=== PATIENT | male | born 1985 | race African-American/Black ===

== ENCOUNTER 2017-07-11 20:06 | Emergency (ER) | payer SELFPAY ==
[2017-07-11 20:46] LABS: Absolute Lymphocytes (CBC) 3.4 K/uL (0.7-4.9); Absolute Monocytes 0.5 K/uL (0.1-1.3); Absolute Neutrophil 2.2 K/uL (1.8-8.0); Basophils % 0.9 % (0-1.3); Eosinophils % 1.4 % (0-4.4); Lymphocytes % 54.9 % (15.3-44.8); MCH 27.7 pg (27.0-35.0); MCV 83.4 fL (80-100); MPV 7.7 fL (7.6-11.3); Monocytes % 7.4 % (3.3-12.3)
--- NOTE | 2017-07-11 20:56 | RAD REPORT ---
EXAM DESCRIPTION: RAD - Chest Single View - 07/11/2017 8:41 pm CLINICAL HISTORY: Abdominal pain COMPARISON: None. TECHNIQUE: AP portable chest image was obtained 2028 hours . FINDINGS: Lungs are clear. Heart and vasculature are normal. No measurable pleural effusion and no p neumothorax. No gross bony abnormality seen. No acute aortic findings suspected. IMPRESSION: No acute cardiopulmonary process.
[2017-07-11 21:01] LABS: ALT/SGPT 18 IU/L (10-60); AST/SGOT 29 IU/L (10-42); Albumin 3.5 g/dL (3.2-5.5); Alkaline Phosphatase 93 IU/L (42-121); BUN Blood Urea Nitrogen 19 mg/dL (6-20); Bicarbonate 31 mEq/L (21-31); Bilirubin Direct 0.3 mg/dL (0-0.2); Bilirubin Total 0.8 mg/dL (0.3-1.2); Glucose Level 85 mg/dL (65-120); Lipase 27 U/L (22-51); Potassium 4.4 mEq/L (3.6-5.0); Protein, Total 7.4 g/dL (6.0-8.3); Sodium Level 135 mEq/L (135-145)
[2017-07-11 21:20] LABS: Barbiturates NEGATIVE; Benzodiazepines NEGATIVE; Cocaine NEGATIVE; Opiates NEGATIVE; Phencyclidine NEGATIVE; THC Cannibis POSITIVE
[2017-07-11 21:21] LABS: METHAMPHETAM POSITIVE (NEGATIVE)
[2017-07-11] MEDS ORDERED: KETOROLAC 30 MG/ML INJ ONE (21:36)
[2017-07-11 21:47] LABS: Urine Blood TRACE (NEG); Urine Glucose NEGATIVE (NEG); Urine Protein 1+ (NEG); Urine pH 7.5 (5.0-7.0)
--- NOTE | 2017-07-11 23:45 | EDPHYS ---
Physician Documentation [facility] Name: Ritesh Fraga Age: 31 yrs Sex: Male : 1985 Arrival Date: 07/11/2017 Time: 20:10 Bed 4 Private MD: ED Physician Nathen Brown HPI: 07/11 20:30 This 31 yrs old Black Male presents to ER via EMS with complaints of Abdominal pain. pm1 20:30 The patient presents with abdominal pain that is diffuse. Onset: The symptoms/episode pm1 began/occurred today. The symptoms do not radiate. Associated signs and symptoms: Pertinent positives: constipation, last normal bowel movement 1 week ago. Has been having small pellet BM for the past few days, Pertinent negatives: nausea, vomiting, and diarrhea, dysuria, fever. The symptoms are described as crampy. Modifying factors: The symptoms are alleviated by nothing, the symptoms are aggravated by nothing. Severity of pain: in the emergency department the pain is actually worse. The patient has not experienced similar symptoms in the past. The patient has not recently seen a physician. Patient reports constipation for the past 7 days. Last normal large BM 7 days ago. For the past days since he has had small pellets for BM. Patient with a history of street drug abuse. Historical: - Allergies: 20:14 No Known Allergies; jd3 - Home Meds: 20:14 None [Active]; jd3 - PMHx: 20:14 None; jd3 - PSHx: 20:14 None; jd3 - Immunization history:: Adult Immunizations up to date. - Social history:: Smoking status: Patient uses tobacco products, smokes one pack cigarettes per day. Patient uses street drugs. - Ebola Screening: : Patient negative for fever greater than or equal to 101.5 degrees Fahrenheit, and additional compatible Ebola Virus Disease symptoms. ROS: 20:30 Constitutional: Negative for fever, chills, and weight loss, Eyes: Negative for injury, pm1 pain, redness, and discharge, ENT: Negative for injury, pain, and discharge, Neck: Negative for injury, pain, and swelling, Respiratory: Negative for shortness of breath, cough, wheezing, and pleuritic chest pain. 20:30 Back: Negative for injury and pain, MS/Extremity: Negative for injury and deformity, Skin: Negative for injury, rash, and discoloration, Neuro: Negative for headache, weakness, numbness, tingling, and seizure. 20:30 : Negative for injury, bleeding, discharge, and swelling. 20:30 Cardiovascular: Positive for Patient reports chest pain when the abdominal pain occurs. 20:30 Abdomen/GI: Positive for abdominal pain, constipation, Negative for nausea, vomiting, and diarrhea. Exam: 20:30 Constitutional: This is a well developed, well nourished patient who is awake, alert, pm1 and in no acute distress. Head/Face: Normocephalic, atraumatic. Eyes: Pupils equal round and reactive to light, extra-ocular motions intact. Lids and lashes normal. Conjunctiva and sclera are non-icteric and not injected. Cornea within normal limits. Periorbital areas with no swelling, redness, or edema. ENT: Nares patent. No nasal discharge, no septal abnormalities noted. Tympanic membranes are normal and external auditory canals are clear. Oropharynx with no redness, swelling, or masses, exudates, or evidence of obstruction, uvula midline. Mucous membranes moist. Neck: Trachea midline, no thyromegaly or masses palpated, and no cervical lymphadenopathy. Supple, full range of motion without nuchal rigidity, or vertebral point tenderness. No Meningismus. Chest/axilla: Normal chest wall appearance and motion. Nontender with no deformity. No lesions are appreciated. Cardiovascular: Regular rate and rhythm with a normal S1 and S2. No gallops, murmurs, or rubs. Normal PMI, no JVD. No pulse deficits. Respiratory: Lungs have equal breath sounds bilaterally, clear to auscultation and percussion. No rales, rhonchi or wheezes noted. No increased work of breathing, no retractions or nasal flaring. 20:30 Back: No spinal tenderness. No costovertebral tenderness. Full range of motion. Skin: Warm, dry with normal turgor. Normal color with no rashes, no lesions, and no evidence of cellulitis. MS/ Extremity: Pulses equal, no cyanosis. Neurovascular intact. Full, normal range of motion. 20:30 Abdomen/GI: Inspection: abdomen appears normal, Bowel sounds: normal, Palpation: soft, mild abdominal tenderness, in the right upper quadrant, mass, is not appreciated, rebound tenderness, is not appreciated. 20:30 Neuro: Orientation: is normal, Motor: is normal, Sensation: is normal, no obvious gross deficits, Gait: is steady, at a normal pace, without difficulty. Vital Signs: 20:15 BP 129 / 101; Pulse 90; Resp 17 S; Temp 98.1(O); Pulse Ox 98% on R/A; Weight 70.31 kg jd3 (R); Height 5 ft. 7 in. (170.18 cm) (R); Pain 10/10; 21:14 BP 121 / 99; Pulse 88; Resp 16 S; Pulse Ox 98% on R/A; jd3 22:14 BP 134 / 88; Pulse 94; Resp 18 S; Pulse Ox 97% on R/A; Pain 8/10; jd3 23:10 BP 170 / 110; Pulse 79; Resp 16 S; Pulse Ox 100% on R/A; Pain 10/10; jd3 06 00:33 Pulse 85; Resp 17 S; Pulse Ox 100% on R/A; jd3 00:57 BP 134 / 98; Pulse 88; Resp 16 S; Pulse Ox 100% on R/A; jd3 07/11 20:15 Body Mass Index 24.28 (70.31 kg, 170.18 cm) j MDM: 07/11 20:13 Patient medically screened. pm1 23:42 Data reviewed: vital signs. Data interpreted: Pulse oximetry: on room air is 100 %. pm1 Interpretation: normal. 23:42 ED course: impression from Vrad: 1. no acute intra-abdominal or pelvic process. 2. pm1 Constipation. 23:42 Counseling: I had a detailed discussion with the patient and/or guardian regarding: the pm1 historical points, exam findings, and any diagnostic results supporting the discharge/admit diagnosis, lab results, radiology results, to return to the emergency department if symptoms worsen or persist or if there are any questions or concerns that arise at home. 07/11 20:12 Order name: Basic Metabolic Panel; Complete Time: 21:47 pm1 07/11 20:12 Order name: CBC with Diff; Complete Time: 21:47 pm1 07/11 20:12 Order name: Hepatic Function; Complete Time: 21:47 pm1 07/11 20:12 Order name: Lipase; Complete Time: 21:47 pm1 07/11 20:12 Order name: Troponin (emerg Dept Use Only); Complete Time: 21:47 pm1 07/11 20:13 Order name: UDS pm1 07/11 20:12 Order name: IV Saline Lock; Complete Time: 20:22 pm1 07/11 20:12 Order name: EKG; Complete Time: 20:13 pm1 07/11 20:12 Order name: Chest Single View XRAY; Complete Time: 21:47 pm1 07/11 20:13 Order name: CT Abd/Pelvis - W/Contrast pm1 07/11 20:13 Order name: Urine Drug Screen; Complete Time: 21:47 EDMS 07/11 21:06 Order name: Urine Dipstick--Ancillary (enter results); Complete Time: 21:47 rg2 07/11 20:12 Order name: Labs collected and sent; Complete Time: 20:48 pm1 07/11 20:12 Order name: Urine Dipstick-Ancillary (obtain specimen); Complete Time: 21:16 pm1 07/11 20:12 Order name: EKG - Nurse/Tech; Complete Time: 20:32 pm1 Administered Medications: 21:39 Drug: TORadol 30 mg Route: IVP; Site: left antecubital; jd3 22:17 Follow up: Response: No adverse reaction jd3 23:57 Drug: NS 0.9% 1000 ml Route: IV; Rate: 1000 ml; Site: left antecubital; jd3 07/12 00:59 Follow up: Response: No adverse reaction; IV Status: Completed infusion; IV Intake: jd3 1000ml Disposition: 06:06 Co-signature as Attending Physician, Nathen Brown MD I agree with the assessment and 4 plan of care. Disposition: 07/11/17 23:44 Discharged to Home. Impression: Constipation, Other stimulant abuse. - Condition is Stable. - Discharge Instructions: Stimulant Use Disorder-Amphetamines, Constipation, Adult. - Prescriptions for Miralax 17 gram/dose Oral - take 1 packet by ORAL route once daily for 7 days dilute powder in 8 ounces of water or juice; 7 packet. - Medication Reconciliation Form, Thank You Letter form. - Follow up: Emergency Department; When: As needed; Reason: Worsening of condition. Follow up: Private Physician; When: 2 - 3 days; Reason: Recheck today's complaints, Continuance of care, Re-evaluation by your physician. - Problem is new. - Symptoms have improved. Signatures: Dispatcher [employer] EDMS Farrukh Guillen, TRISTAN RECORDINGS LIBRARIAN pm1 Yaya Eddy, NITESH RN jd3 Nathen Brown MD MD tw4 Corrections: (The following items were deleted from the chart) 07/11 23:48 23:44 07/11/2017 23:44 Discharged to Home. Impression: Constipation. Condition is pm1 Stable. Forms are Medication Reconciliation Form, Thank You Letter, Antibiotic Education, Prescription Opioid Use. Follow up: Emergency Department; When: As needed; Reason: Worsening of condition. Follow up: Private Physician; When: 2 - 3 days; Reason: Recheck today's complaints, Continuance of care, Re-evaluation by your physician. Problem is new. Symptoms have improved. pm1 07/12 01:00 07/11 23:48 07/11/2017 23:44 Discharged to Home. Impression: Constipation; Other jd3 stimulant abuse. Condition is Stable. Discharge Instructions: Constipation, Adult. Prescriptions for Miralax 17 gram/dose Oral - take 1 packet by ORAL route once daily for 7 days dilute powder in 8 ounces of water or juice; 7 packet. and Forms are Medication Reconciliation Form, Thank You Letter, Antibiotic Education. Follow up: Emergency Department; When: As needed; Reason: Worsening of condition. Follow up: Private Physician; When: 2 - 3 days; Reason: Recheck today's complaints, Continuance of care, Re-evaluation by your physician. Problem is new. Symptoms have improved. pm1
--- NOTE | 2017-07-11 23:45 | ER ---
Nurse's Notes [facility] Name: Ritesh Fraga Age: 31 yrs Sex: Male : 1985 Arrival Date: 07/11/2017 Time: 20:10 Bed 4 Private MD: Diagnosis: Constipation;Other stimulant abuse Presentation: 07/11 20:10 Presenting complaint: EMS states: "pt is having sever abdominal pain in bother upper jd3 quadrants." pt reports it hurts all over his abdomen, but mainly the upper quadrants. Transition of care: patient was not received from another setting of care. Onset of symptoms was July 11, 2017. Risk Assessment: Do you want to hurt yourself or someone else? Patient reports no desire to harm self or others. Initial Sepsis Screen: Does the patient meet any 2 criteria? No. Patient's initial sepsis screen is negative. Does the patient have a suspected source of infection? No. Patient's initial sepsis screen is negative. Care prior to arrival: Medication(s) given: ASA, 325 mg, x 1, IV initiated. 20 GA, in the left antecubital area. 20:10 Method Of Arrival: EMS: [facility] jd3 20:10 Acuity: TOMMY 3 jd3 Historical: - Allergies: 20:14 No Known Allergies; jd3 - Home Meds: 20:14 None [Active]; jd3 - PMHx: 20:14 None; jd3 - PSHx: 20:14 None; jd3 - Immunization history:: Adult Immunizations up to date. - Social history:: Smoking status: Patient uses tobacco products, smokes one pack cigarettes per day. Patient uses street drugs. - Ebola Screening: : Patient negative for fever greater than or equal to 101.5 degrees Fahrenheit, and additional compatible Ebola Virus Disease symptoms. Screenin:14 Abuse screen: Denies threats or abuse. Nutritional screening: No deficits noted. jd3 Tuberculosis screening: No symptoms or risk factors identified. Fall Risk IV access (20 points). Gait- Normal/Bed Rest/Wheelchair (0 pts) Mental Status- Oriented to own ability (0 pts). Total Helms Fall Scale indicates No Risk (0-24 pts). Assessment: 20:16 General: Appears uncomfortable, Behavior is cooperative, appropriate for age, anxious. jd3 Pain: Complains of pain in abdomen Pain currently is 10 out of 10 on a pain scale. Quality of pain is described as Pain began 2-3 days ago. Is continuous, Also complains of nausea. 20:17 Neuro: Level of Consciousness is awake, alert, obeys commands, Oriented to person, jd3 place, time, situation. Cardiovascular: Heart tones S1 S2 present Capillary refill < 3 seconds. Respiratory: Airway is patent Respiratory effort is even, unlabored, Respiratory pattern is regular, symmetrical, Breath sounds are clear bilaterally. GI: Abdomen is flat, Bowel sounds present X 4 quads. Abd is soft Abdomen is tender to palpation X 4 quads. Reports lower abdominal pain, upper abdominal pain, constipation, cramping. : No signs and/or symptoms were reported regarding the genitourinary system. EENT: No signs and/or symptoms were reported regarding the EENT system. Derm: Skin is intact, Skin is dry, Skin is normal, Skin temperature is warm. Musculoskeletal: Circulation, motion, and sensation intact. Range of motion: intact in all extremities. 21:15 Reassessment: Patient appears in no apparent distress at this time. Patient and/or jd3 family updated on plan of care and expected duration. Pain level reassessed. Patient is alert, oriented x 3, equal unlabored respirations, skin warm/dry/pink. 23:10 Reassessment: waiting for IV fluids to infuse before discharge. provider made aware of jd3 elevated blood pressure, no new orders noted at this time. 23:19 Reassessment: Patient appears in no apparent distress at this time. Patient and/or jd3 family updated on plan of care and expected duration. Pain level reassessed. Patient is alert, oriented x 3, equal unlabored respirations, skin warm/dry/pink. 07/12 00:35 Reassessment: Patient appears in no apparent distress at this time. Patient and/or jd3 family updated on plan of care and expected duration. Pain level reassessed. Patient is alert, oriented x 3, equal unlabored respirations, skin warm/dry/pink. waiting discharge for IV fluids to infuse. no distress noted at this time, call camacho in reach, family at bedside. 01:00 Reassessment: Patient appears in no apparent distress at this time. Patient and/or jd3 family updated on plan of care and expected duration. Pain level reassessed. Patient is alert, oriented x 3, equal unlabored respirations, skin warm/dry/pink. pt reported understanding of discharge instructions, even and steady gait upon discharge. Patient states feeling better. Vital Signs: 07/11 20:15 BP 129 / 101; Pulse 90; Resp 17 S; Temp 98.1(O); Pulse Ox 98% on R/A; Weight 70.31 kg jd3 (R); Height 5 ft. 7 in. (170.18 cm) (R); Pain 10/10; 21:14 BP 121 / 99; Pulse 88; Resp 16 S; Pulse Ox 98% on R/A; jd3 22:14 BP 134 / 88; Pulse 94; Resp 18 S; Pulse Ox 97% on R/A; Pain 8/10; jd3 23:10 BP 170 / 110; Pulse 79; Resp 16 S; Pulse Ox 100% on R/A; Pain 10/10; jd3 07/12 00:33 Pulse 85; Resp 17 S; Pulse Ox 100% on R/A; jd3 00:57 BP 134 / 98; Pulse 88; Resp 16 S; Pulse Ox 100% on R/A; jd3 07/11 20:15 Body Mass Index 24.28 (70.31 kg, 170.18 cm) j ED Course: 07/11 20:10 Patient arrived in ED. jd3 20:11 Farrukh Guillen NP is PHCP. pm1 20:11 Nathen Brown MD is Attending Physician. pm1 20:13 Triage completed. jd3 20:16 Arm band placed on. jd3 20:17 Yaya Eddy RN is Primary Nurse. jd3 20:39 X-ray completed. Portable x-ray completed in exam room. Patient tolerated procedure ml well. 20:39 Chest Single View XRAY In Process Unspecified. EDMS 21:15 Patient has correct armband on for positive identification. Bed in low position. Call [facility] light in reach. Side rails up X2. Adult w/ patient. 22:[address] via wheelchair. 22:45 CT completed. PATIENT STATED HE WAS ITCHY AFTER GETTING THE CONTRAST INJECTION. Patient eh moved back from CT. 22:46 CT Abd/Pelvis - W/Contrast In Process Unspecified. EDMS 22:46 Notified. Notified. 07/12 00:58 No provider procedures requiring assistance completed. IV discontinued, intact, jd3 bleeding controlled, No redness/swelling at site. Pressure dressing applied. Administered Medications: 07/11 21:39 Drug: TORadol 30 mg Route: IVP; Site: left antecubital; jd3 22:17 Follow up: Response: No adverse reaction jd3 23:57 Drug: NS 0.9% 1000 ml Route: IV; Rate: 1000 ml; Site: left antecubital; jd3 07/12 00:59 Follow up: Response: No adverse reaction; IV Status: Completed infusion; IV Intake: jd3 1000ml Intake: 00:59 IV: 1000ml; Total: 1000ml. jd3 Outcome: 07/11 23:44 Discharge ordered by . pm1 07/12 00:58 Discharged to home ambulatory, with family. jd3 Condition: stable Discharge instructions given to patient, family, Instructed on discharge instructions, follow up and referral plans. medication usage, Demonstrated understanding of instructions, follow-up care, medications, Prescriptions given X 1. 01:00 Patient left the ED. jd3 Signatures: Dispatcher [employer] Domo Stevens Melissa ml Marinas, Patrick, TRISTAN JACQUARD LACE WEAVER pm1 Yaya Eddy RN RN jd3 Corrections: (The following items were deleted from the chart) 07/11 20:19 20:16 Pain: Complains of pain in abdomen Pain currently is 10 out of 10 on a pain jd3 scale. Quality of pain is described as jd3 07/12 00:36 07/11 23:57 Reassessment: waiting for IV fluids to infuse before discharge. provider jd3 made aware of elevated blood pressure, no new orders noted at this time. jd3
[2017-07-11] MEDS ORDERED: NA CHLORIDE 0.9% 1,000 ML ONE (23:51)
--- NOTE | 2017-07-12 06:51 | EKG ---
Test Date: 2017-07-11 Test Time: 20:28:12 Glass Enamel Mixer: SHANITA MEASUREMENT RESULTS: Intervals: Rate: 78 ME: 146 QRSD: 82 QT: 344 QTc: 392 [place]: P: 25 ME: 146 QRS: 74 T: 77 INTERPRETIVE STATEMENTS: Normal sinus rhythm Early repolarization Normal ECG No previous ECG available for comparison Electronically Signed On 07-12-17 06:50:45 CDT by Aleksandar Diallo
--- NOTE | 2017-07-12 08:23 | RAD REPORT ---
EXAM DESCRIPTION: CT - Abdomen Pelvis W Contrast - 07/12/2017 7:33 am CLINICAL HISTORY: Diffuse abdominal pain. A preliminary written report was provided at the time of the study, and the report was reviewed prio r to final dictation. COMPARISON: None. TECHNIQUE: Biphasic, helical CT imaging of the abdomen and pelvis was performed following 100 ml non -ionic IV contrast. No oral contrast administered. All CT scans are performed using dose optimization technique as appropriate and may include automated exposure control or mA/KV adjustment according to patient size. FINDINGS: No suspicious findings in the lung bases. The liver, spleen, and pancreas show no suspicious findings. Gallbladder and biliary tree are also wi thout suspicious finding. Renal function is symmetric. No hydronephrosis or suspicious renal mass. There is some minimal hetero geneity of the renal parenchymal enhancement. Urinary bladder is contracted. Likelihood of pyelonephr itis is felt to be low but can be correlated with any UA abnormality. No dilated bowel loops or bowel wall thickening. Appendicitis is not suspected. There is a large amou nt of stool present filling the colon. No free air, free fluid or inflammatory stranding. No hernia, mass or bulky lymphadenopathy. Urinary bladder is mostly contracted precluding accurate assessment. No bladder calculus suspected. No adrenal abnormality. No suspicious bony findings. IMPRESSION: No bowel obstruction, free air or surgically emergent finding. Constipation or large colon stool volume. No appendicitis suspected. Subtle heterogeneity of the renal parenchymal is doubtful as significant. Pyelonephritis would not be suspected without supporting laboratory abnormality or matching clinical history.
== END 2017-07-12 01:00 | disposition home or self-care (01) ==
LOC: ER 20:06
DX: K59.00 Constipation, unspecified (principal); F17.210 Nicotine dependence, cigarettes, uncomplicated
CPT/HCPCS: 36415; 71045; 74177; 80048; 80076; 80307; 81003; 83690; 84484; 85025; 93005; 96361; 96374; 99284; J7030; Q9967

== ENCOUNTER 2019-01-26 23:25 | Emergency (ER) | payer SELFPAY ==
[2019-01-27] MEDS ORDERED: NA CHLORIDE 0.9% 1,000 ML ONE ×2 (00:08→01:14)
[2019-01-27 00:24] LABS: Absolute Lymphocytes (CBC) 3.3 K/uL (0.7-4.9); Hematocrit 32.2 % (39.6-49.0); Lymphocytes % 27.9 % (15.3-44.8); MPV 8.6 fL (7.6-11.3)
[2019-01-27 00:28] LABS: Urine Blood NEGATIVE (NEG); Urine Glucose NEGATIVE (NEG); Urine Protein NEGATIVE (NEG)
[2019-01-27 00:30] LABS: Barbiturates NEGATIVE (NEGATIVE); Benzodiazepines NEGATIVE (NEGATIVE); Cocaine NEGATIVE (NEGATIVE); METHAMPHETAM NEGATIVE (NEGATIVE); Methadone NEGATIVE (NEGATIVE); Opiates NEGATIVE (NEGATIVE); Phencyclidine NEGATIVE (NEGATIVE); THC Cannibis NEGATIVE (NEGATIVE)
[2019-01-27 00:34] LABS: ALT/SGPT 20 U/L (12-78); AST/SGOT 13 U/L (15-37); Albumin 3.2 g/dL (3.4-5.0); Alkaline Phosphatase 76 U/L (45-117); BUN Blood Urea Nitrogen 38 mg/dL (7-18); Bicarbonate 30 mmol/L (21-32); Bilirubin Direct < 0.1 mg/dL (0-0.2); Bilirubin Total 0.2 mg/dL (0.2-1.0); Glucose Level 92 mg/dL (74-106); Lipase 56 U/L (73-393); Potassium 4.4 mmol/L (3.5-5.1); Protein, Total 6.5 g/dL (6.4-8.2); Sodium Level 138 mmol/L (136-145)
--- NOTE | 2019-01-27 01:29 | ER ---
Nurse's Notes [facility] Name: Ritesh Fraga Age: 33 yrs Sex: Male : 1985 Arrival Date: 01/26/2019 Time: 23:29 Bed 27 Private MD: Diagnosis: Diarrhea, unspecified;Dehydration Presentation: 01/26 23:34 Presenting complaint: Patient states: feeling weak, fatigued, lightheaded and SOB that started today. Also had 1 loose black bowel movement. Transition of care: patient was not received from another setting of care. Onset of symptoms was January 26, 2019. Risk Assessment: Do you want to hurt yourself or someone else? Patient reports no desire to harm self or others. Initial Sepsis Screen: Does the patient meet any 2 criteria? HR > 90 bpm. Does the patient have a suspected source of infection? No. Patient's initial sepsis screen is negative. Care prior to arrival: None. 23:34 Method Of Arrival: Ambulatory 23:34 Acuity: TOMMY 3 Historical: - Allergies: 23:39 No Known Allergies; - Home Meds: 23:39 None [Active]; - PMHx: 23:39 None; - PSHx: 23:39 None; - Immunization history:: Adult Immunizations not up to date. - Social history:: Smoking status: Patient uses tobacco products. - Ebola Screening: : Patient negative for fever greater than or equal to 101.5 degrees Fahrenheit, and additional compatible Ebola Virus Disease symptoms Patient denies exposure to infectious person. Screenin:41 Abuse screen: Denies threats or abuse. Denies injuries from another. Nutritional screening: No deficits noted. Tuberculosis screening: No symptoms or risk factors identified. Fall Risk None identified. Assessment: 01/27 00:02 General: Appears uncomfortable, Behavior is calm, cooperative, appropriate for age. tr5 General: Reports feeling ill for. Pain: Denies pain. Neuro: Reports dizziness, weakness. Cardiovascular: Heart tones present Capillary refill < 3 seconds Pulses are all present. Respiratory: Reports cough that is Airway is patent Respiratory effort is even, unlabored, Respiratory pattern is regular, symmetrical. GI: Reports bloody stool. : No signs and/or symptoms were reported regarding the genitourinary system. EENT: Reports nasal congestion nasal discharge. Derm: No signs and/or symptoms reported regarding the dermatologic system. Musculoskeletal: No signs and/or symptoms reported regarding the musculoskeletal system. 01:49 Reassessment: Patient appears in no apparent distress at this time. Patient and/or jb4 family updated on plan of care and expected duration. Pain level reassessed. Patient is alert, oriented x 3, equal unlabored respirations, skin warm/dry/pink. Pt and significant other verbalized understanding of d/c and follow up instructions. rechecked pt's b/p, b/p noted at 81/69. Pt refused second 1L bolus prior to discharge. Pt continues to refuse bolus. Pt states " I have some very important stuff for my daughter in the morning, I have to go.". Informed patient of the risk of leaving with low blood pressure and the possibility of worsening condition up to . Pt verbalized understanding of information. Refused to stay for further treatment and evaluation. Vital Signs: 01/26 23:41 BP 102 / 83; Pulse 110; Resp 18; Temp 97.8; Pulse Ox 100% ; Weight 69.85 kg; Height 5 wh ft. 8 in. (172.72 cm); 01/27 00:43 BP 85 / 67; Pulse 93; Resp 18; Pulse Ox 99% on R/A; tr5 01:49 BP 81 / 69; Pulse 95; Resp 16; Pulse Ox 98% on R/A; jb4 01/26 23:41 Body Mass Index 23.42 (69.85 kg, 172.72 cm) ED Course: 01/26 23:29 Patient arrived in ED. jg7 23:32 Farrukh Guillen NP is PHCP. pm1 23:32 Nathen Brown MD is Attending Physician. pm1 23:35 Triage completed. 23:40 Arm band placed on right wrist. 23:40 Patient has correct armband on for positive identification. Bed in low position. Call light in reach. Side rails up X 1. Pulse ox on. NIBP on. 23:41 Manjit Mccabe, RN is Primary Nurse. tr5 01/27 00:01 Strep Sent. tr5 00:01 Flu Sent. tr5 00:05 Initial lab(s) drawn, by me, sent to lab. Inserted saline lock: 20 gauge in right tr5 antecubital area, using aseptic technique. 01:49 No provider procedures requiring assistance completed. IV discontinued, intact, jb4 bleeding controlled, No redness/swelling at site. Pressure dressing applied. Administered Medications: Discontinued: NS 0.9% 1000 ml IV at 1000 ml once 00:13 Drug: NS 0.9% 1000 ml Route: IV; Rate: 1000 ml; Site: right antecubital; tr5 01:20 Follow up: Response: No adverse reaction; IV Status: Completed infusion; IV Intake: jb4 1000ml 00:45 Drug: NS 0.9% 1000 ml Route: IV; Rate: 1000 ml; Site: right antecubital; tr5 00:58 CANCELLED (Physician Discretion): Pepcid 20 mg IVP once pm1 Intake: 01:20 IV: 1000ml; Total: 1000ml. jb4 Outcome: 01:29 Discharge ordered by . pm1 01:49 Discharged to home ambulatory, with significant other. jb4 01:49 Condition: stable 01:49 Discharge instructions given to patient, significant other, Instructed on discharge instructions, follow up and referral plans. medication usage, Demonstrated understanding of instructions, follow-up care, medications, Prescriptions given X 1. 02:01 Patient left the ED. jb4 Signatures: Farrukh Guillen NP PERSONAL COMPUTER SPECIALIST pm1 Peterson Castillo RN RN jb4 Nahid Mtz Tommie, RN RN tr5 Emma [id number] Corrections: (The following items were deleted from the chart) 01/26 23:40 23:34 Initial Sepsis Screen: Does the patient meet any 2 criteria? No. Patient's initial sepsis screen is negative. Does the patient have a suspected source of infection? No. Patient's initial sepsis screen is negative.
--- NOTE | 2019-01-27 01:29 | EDPHYS ---
Physician Documentation [facility] Name: Ritesh Fraga Age: 33 yrs Sex: Male : 1985 Arrival Date: 01/26/2019 Time: 23:29 Bed 27 Private MD: ED Physician Nathen Brown HPI: 01/26 23:45 This 33 yrs old Black Male presents to ER via Ambulatory with complaints of Dizziness, pm1 Black/Tarry Stools. 23:45 The patient presents with feeling faint. Onset: The symptoms/episode began/occurred pm1 today. Context: occurred at home. Modifying factors: The symptoms are alleviated by nothing, the symptoms are aggravated by standing up. Associated signs and symptoms: Pertinent positives: shortness of breath, Cough, Black watery diarrhea, Pertinent negatives: abdominal pain, chest pain, headache, nausea, numbness, vomiting. Severity of symptoms: Pain is currently a 0 / 10. The patient has not experienced similar symptoms in the past. It is unknown whether or not the patient has recently seen a physician. Historical: - Allergies: 23:39 No Known Allergies; - Home Meds: 23:39 None [Active]; - PMHx: 23:39 None; - PSHx: 23:39 None; - Immunization history:: Adult Immunizations not up to date. - Social history:: Smoking status: Patient uses tobacco products. - Ebola Screening: : Patient negative for fever greater than or equal to 101.5 degrees Fahrenheit, and additional compatible Ebola Virus Disease symptoms Patient denies exposure to infectious person. ROS: 23:45 Eyes: Negative for injury, pain, redness, and discharge, ENT: Negative for injury, pm1 pain, and discharge, Neck: Negative for injury, pain, and swelling, Cardiovascular: Negative for chest pain, palpitations, and edema, Respiratory: Negative for shortness of breath, cough, wheezing, and pleuritic chest pain. 23:45 Back: Negative for injury and pain, : Negative for injury, bleeding, discharge, and swelling, MS/Extremity: Negative for injury and deformity, Skin: Negative for injury, rash, and discoloration, Neuro: Negative for headache, weakness, numbness, tingling, and seizure. 23:45 Constitutional: Positive for chills, Negative for fever, poor PO intake. 23:45 Abdomen/GI: Positive for diarrhea, Negative for abdominal pain, nausea, vomiting, constipation. Exam: 23:45 Constitutional: This is a well developed, well nourished patient who is awake, alert, pm1 and in no acute distress. Head/Face: Normocephalic, atraumatic. Neck: Trachea midline, no thyromegaly or masses palpated, and no cervical lymphadenopathy. Supple, full range of motion without nuchal rigidity, or vertebral point tenderness. No Meningismus. Chest/axilla: Normal chest wall appearance and motion. Nontender with no deformity. No lesions are appreciated. Cardiovascular: Regular rate and rhythm with a normal S1 and S2. No gallops, murmurs, or rubs. Normal PMI, no JVD. No pulse deficits. Respiratory: Lungs have equal breath sounds bilaterally, clear to auscultation and percussion. No rales, rhonchi or wheezes noted. No increased work of breathing, no retractions or nasal flaring. Abdomen/GI: Soft, non-tender, with normal bowel sounds. No distension or tympany. No guarding or rebound. No evidence of tenderness throughout. Back: No spinal tenderness. No costovertebral tenderness. Full range of motion. Skin: Warm, dry with normal turgor. Normal color with no rashes, no lesions, and no evidence of cellulitis. MS/ Extremity: Pulses equal, no cyanosis. Neurovascular intact. Full, normal range of motion. 23:45 Neuro: Orientation: is normal, Motor: is normal, moves all fours, Sensation: is normal, no obvious gross deficits, Gait: is steady, at a normal pace, without difficulty. Vital Signs: 23:41 BP 102 / 83; Pulse 110; Resp 18; Temp 97.8; Pulse Ox 100% ; Weight 69.85 kg; Height 5 wh ft. 8 in. (172.72 cm); 01/27 00:43 BP 85 / 67; Pulse 93; Resp 18; Pulse Ox 99% on R/A; tr5 01:49 BP 81 / 69; Pulse 95; Resp 16; Pulse Ox 98% on R/A; jb4 01/26 23:41 Body Mass Index 23.42 (69.85 kg, 172.72 cm) wh MDM: 01/26 23:33 Patient medically screened. pm1 01/27 00:03 Refusal of service: The patient/guardian displays adequate decision making capability pm1 and despite a detailed discussion of alternatives, benefits, risks, and consequences refuses: Patient does not want stool guaiac test. 01:21 Data reviewed: vital signs. Data interpreted: Pulse oximetry: on room air is 99 %. pm1 Interpretation: normal. 01:26 Refusal of service: The patient/guardian displays adequate decision making capability pm1 and despite a detailed discussion of alternatives, benefits, risks, and consequences refuses: Refusal of service: The patient/guardian displays adequate decision making capability and despite a detailed discussion of alternatives, benefits, risks, and consequences refuses: Additional IV fluids and evaluation of anus and stool guaiac test. 01:26 ED course: Patient wants to go home now to "take care of issues pertaining to his pm1 daughter." He does not want the fluids because he feels better now. Patient without any bowel movement in the ER. Without stool guaiac and rectal examination current impression is diarrhea with dehydration. Will give the patient a prescription for Carafate and instructed the patient to follow up with GI and educated on return precautions. . 01/26 23:44 Order name: UDS pm1 01/26 23:44 Order name: Basic Metabolic Panel pm1 01/26 23:44 Order name: CBC with Diff pm1 01/26 23:44 Order name: Creatinine for Radiology pm1 01/26 23:44 Order name: Hepatic Function pm1 01/26 23:44 Order name: Lipase pm1 01/26 23:44 Order name: Flu pm1 01/26 23:44 Order name: Strep pm1 01/27 00:13 Order name: Urine Dipstick--Ancillary (enter results) mt 01/27 00:24 Order name: CBC with Automated Diff; Complete Time: 00:28 EDMS 01/27 00:28 Order name: Urine Dipstick-Ancillary; Complete Time: 00:29 EDMS 01/27 00:30 Order name: Influenza Screen (A ; Complete Time: 00:35 EDMS 01/27 00:31 Order name: Urine Drug Screen; Complete Time: 00:35 EDMS 01/27 00:31 Order name: Creatinine (Radiology Only); Complete Time: 00:35 EDMS 01/26 23:44 Order name: IV Saline Lock; Complete Time: 00:01 pm1 01/26 23:44 Order name: Labs collected and sent; Complete Time: 00:01 pm1 01/27 00:31 Order name: Group A Streptococcus Rapid Sc; Complete Time: 00:35 EDMS 01/27 00:34 Order name: Basic Metabolic Panel; Complete Time: 00:35 EDMS 01/27 00:34 Order name: Liver (Hepatic) Function; Complete Time: 00:35 EDMS 01/27 00:34 Order name: Lipase; Complete Time: 00:35 EDMS Administered Medications: Discontinued: NS 0.9% 1000 ml IV at 1000 ml once 00:13 Drug: NS 0.9% 1000 ml Route: IV; Rate: 1000 ml; Site: right antecubital; tr5 01:20 Follow up: Response: No adverse reaction; IV Status: Completed infusion; IV Intake: jb4 1000ml 00:45 Drug: NS 0.9% 1000 ml Route: IV; Rate: 1000 ml; Site: right antecubital; tr5 00:58 CANCELLED (Physician Discretion): Pepcid 20 mg IVP once pm1 Disposition: 06:43 Co-signature as Attending Physician, Nathen Brown MD I agree with the assessment and tw4 plan of care. Disposition: 01/27/19 01:29 Discharged to Home. Impression: Diarrhea, unspecified, Dehydration. - Condition is Stable. - Discharge Instructions: Food Choices to Help Relieve Diarrhea, Adult, Dehydration, Adult, Diarrhea, Adult, Rehydration, Adult. - Prescriptions for Carafate 1 gram Oral Tablet - take 1 tablet by ORAL route 4 times per day take on an empty stomach, beginning on waking and last dose at bedtime; 100 tablet. - Medication Reconciliation Form, Thank You Letter, Antibiotic Education, Prescription Opioid Use form. - Follow up: Emergency Department; When: As needed; Reason: Worsening of condition. Follow up: Private Physician; When: 2 - 3 days; Reason: Recheck today's complaints, Continuance of care, Re-evaluation by your physician. - Problem is new. - Symptoms have improved. Signatures: Dispatcher [employer] EDMS Farrukh Guillen, CADD OPERATOR CADD OPERATOR pm1 Peterson Castillo RN RN jb4 Nahid Mtz Terrence, MD MD tw4 Eliot, Manjit, RN RN tr5 Corrections: (The following items were deleted from the chart) 00:58 00:58 Pepcid 20 mg IVP once ordered. pm1 pm1 02:01 01:29 01/27/2019 01:29 Discharged to Home. Impression: Diarrhea, unspecified; jb4 Dehydration. Condition is Stable. Forms are Medication Reconciliation Form, Thank You Letter, Antibiotic Education, Prescription Opioid Use. Follow up: Emergency Department; When: As needed; Reason: Worsening of condition. Follow up: Private Physician; When: 2 - 3 days; Reason: Recheck today's complaints, Continuance of care, Re-evaluation by your physician. Problem is new. Symptoms have improved. pm1
[2019-01-27 04:00] VITALS: TEMP 97.8
[2019-01-27 04:10] VITALS: BP 81/69; O2SAT 98
== END 2019-01-27 02:01 | disposition home or self-care (01) ==
LOC: ER 23:25
DX: E86.0 Dehydration (principal); Z72.0 Tobacco use
CPT/HCPCS: 36415; 80048; 80076; 80307; 81003; 83690; 85025; 87070; 87081; 87804; 96360; 99284; J7030

== ENCOUNTER 2023-07-07 13:51 | Emergency (ER) | payer SELFPAY ==
[2023-07-07] MEDS ORDERED: MAGNES/ALUMIN/SIMET 30ML UCUP ONE (13:59)
[2023-07-07] MEDS ORDERED: LIDOCAINE VISCOUS 2% 10ML ORAL SOLN ONE (14:00)
--- NOTE | 2023-07-07 14:48 | EDPHYS ---
Physician Documentation [facility] Name: Ritesh Fraga Age: 37 yrs Sex: Male : 1985 Arrival Date: 07/07/2023 Time: 13:51 Bed 12 Private MD: ED Physician Isidro Castillo HPI: 07/06 14:45 This 37 yrs old Black Male presents to ER via EMS with complaints of Sore Throat. kb 14:45 Pt is a 37 year old male who presents for sore throat, fever and weakness that started kb 2 days ago. States he was exposed to strep on . . Historical: - Allergies: 13:53 No Known Allergies; as6 - Home Meds: 13:53 None [Active]; as6 - PMHx: 13:53 None; as6 - PSHx: 13:53 None; as6 - Immunization history:: Adult Immunizations not up to date. - Infectious Disease History:: Denies. - Social history:: Smoking status: Patient reports the use of cigarette tobacco products. ROS: 14:42 Constitutional: As per HPI kb Exam: 14:42 Constitutional: This is a well developed, well nourished patient who is awake, alert, kb and in no acute distress. Head/Face: Normocephalic, atraumatic. ENT: Moist Mucous membranes Cardiovascular: Regular rate Respiratory: Respirations even and unlabored. No increased work of breathing. Talking in full sentences Abdomen/GI: Soft, non-tender. No distention Skin: Warm, dry with normal turgor. Normal color. MS/ Extremity: Pulses equal, no cyanosis. Neurovascular intact. Full, normal range of motion. Neuro: Awake and alert, GCS 15, oriented to person, place, time, and situation. Moves all extremities. Normal gait. 14:42 ENT: Posterior pharynx: Airway: normal, no evidence of obstruction, Tonsils: bilaterally enlarged, with erythema, Uvula: normal, midline, swelling, that is moderate, erythema, that is moderate, that is marked, Vital Signs: 13:53 BP 149 / 93; Pulse 79; Resp 18; Temp 98.3; Pulse Ox 99% ; Weight 83.91 kg; Height 5 ft. as6 8 in. ; Pain 9/10; 13:53 Body Mass Index 28.13 (83.91 kg, 172.72 cm) as6 13:53 Pain Scale: Adult as6 MDM: 13:52 Patient medically screened. kb 14:43 Differential diagnosis: tonsillitis, strep, OFFICE SUPPORT CLERK. Data reviewed: vital signs, nurses kb notes. Historians other than the Patient: EMS: [facility]. Counseling: I had a detailed discussion with the patient and/or guardian regarding the historical points, exam findings, and any diagnostic results supporting the discharge/admit diagnosis, lab results, the need for outpatient follow up, a family practitioner, to return to the emergency department if symptoms worsen or persist or if there are any questions or concerns that arise at home. 07/06 13:52 Order name: Strep; Complete Time: 14:36 kb Administered Medications: 14:04 Drug: GI Cocktail without - (Maalox PO 30 ml, Lidocaine Mucous Membrane 2 % 15 bp ml) PO once Route: PO; 14:04 Follow up: Response: No adverse reaction bp Disposition: 17:20 Co-signature as Attending Physician, Isidro Castillo MD I reviewed the patient's care rt provided by the Advanced Practice Provider and agree with the diagnosis and treatment plan. Disposition Summary: 07/07/23 14:47 Discharge Ordered Notes: Location: Home kb Condition: Stable kb Diagnosis - Streptococcal pharyngitis kb Followup: kb - With: Emergency Department - When: As needed - Reason: Worsening of condition Followup: kb - With: Private Physician - When: 2 - 3 days - Reason: Recheck today's complaints, Continuance of care, Re-evaluation by your physician Discharge Instructions: - Discharge Summary Sheet kb - Strep Throat, Adult, [id number] kb Forms: - Medication Reconciliation Form kb - Antibiotic Education kb - Prescription Opioid Use kb - Patient Portal Instructions kb - Leadership Thank You Letter kb - Work release form eb Prescriptions: - Amoxicillin 875 mg Oral Tablet - take 1 tablet ORAL route every 12 hours for 10 days; 20 tablet; Refills: 0, kb Product Selection Permitted Signatures: Dispatcher [employer] Alma Gerard, César Sanchez, RN RN bp Barrett Hawkins RN RN as6 Isidro Castillo MD MD rt Corrections: (The following items were deleted from the chart) 13:53 13:53 Group A Streptococcus Rapid [id number] ordered. EDMS EDMS
--- NOTE | 2023-07-07 14:48 | ER ---
Nurse's Notes [facility] Name: Ritesh Fraga Age: 37 yrs Sex: Male : 1985 Arrival Date: 07/07/2023 Time: 13:51 Bed 12 Private MD: Diagnosis: Streptococcal pharyngitis Presentation: 07/06 13:53 Chief complaint: EMS states: called out for sore throat, pt reports being exposed to as6 strep. Coronavirus screen: At this time, the client does not indicate any symptoms associated with coronavirus-19. Ebola Screen: No symptoms or risks identified at this time. Initial Sepsis Screen: Does the patient meet any 2 criteria? No. Patient's initial sepsis screen is negative. Does the patient have a suspected source of infection? No. Patient's initial sepsis screen is negative. Risk Assessment: Do you want to hurt yourself or someone else? Patient reports no desire to harm self or others. Onset of symptoms was July 05, 2023. 13:53 Method Of Arrival: EMS: [facility] as6 13:53 Acuity: TOMMY 4 as6 Triage Assessment: 13:55 General: Appears in no apparent distress. Behavior is cooperative, appropriate for age, bp anxious. Pain: Complains of pain in neck. EENT: Reports pain when swallowing. Historical: - Allergies: 13:53 No Known Allergies; as6 - Home Meds: 13:53 None [Active]; as6 - PMHx: 13:53 None; as6 - PSHx: 13:53 None; as6 - Immunization history:: Adult Immunizations not up to date. - Infectious Disease History:: Denies. - Social history:: Smoking status: Patient reports the use of cigarette tobacco products. Screenin:05 [facility] ED Fall Risk Assessment (Adult) History of falling in the last 3 months, bp including since admission No falls in past 3 months (0 pts). Abuse screen: Denies threats or abuse. Denies injuries from another. Nutritional screening: No deficits noted. Tuberculosis screening: No symptoms or risk factors identified. Assessment: 14:05 General: Appears in no apparent distress. Behavior is cooperative, appropriate for age, bp anxious. Pain: Complains of pain in neck. Neuro: No deficits noted. Cardiovascular: No deficits noted. Respiratory: No deficits noted. GI: No signs and/or symptoms were reported involving the gastrointestinal system. : No signs and/or symptoms were reported regarding the genitourinary system. EENT: Throat is reddened. Derm: No deficits noted. Musculoskeletal: No deficits noted. Vital Signs: 13:53 BP 149 / 93; Pulse 79; Resp 18; Temp 98.3; Pulse Ox 99% ; Weight 83.91 kg; Height 5 ft. as6 8 in. ; Pain 9/10; 13:53 Body Mass Index 28.13 (83.91 kg, 172.72 cm) as6 13:53 Pain Scale: Adult as6 ED Course: 13:52 Patient arrived in ED. kb 13:52 [facility] Sears [facility]-C [facility] kb 13:52 Isidro Castillo MD is Attending Physician. kb 13:53 Arm band placed on. as6 13:54 Triage completed. as6 13:57 César Umanzor, RN is Primary Nurse. bp 14:04 Strep Sent. bp 14:04 Strep swab sent to lab. bp 14:05 Patient has correct armband on for positive identification. bp 15:01 No provider procedures requiring assistance completed. Patient did not have IV access bp during this emergency room visit. Administered Medications: 14:04 Drug: GI Cocktail without - (Maalox PO 30 ml, Lidocaine Mucous Membrane 2 % 15 bp ml) PO once Route: PO; 14:04 Follow up: Response: No adverse reaction bp Medication: 14:05 VIS not applicable for this client. bp Outcome: 14:47 Discharge ordered by . kb 15:01 Discharged to home ambulatory, with family, bp 15:01 Condition: stable 15:01 Discharge instructions given to patient, Instructed on discharge instructions, follow up and referral plans. medication usage, Demonstrated understanding of instructions, follow-up care, medications, Prescriptions given X 1, 15:02 Patient left the ED. bp Signatures: Alma Sears FNP-C FNP-César Taylor, RN RN bp Barrett Hawkins, NITESH RN as6
[2023-07-07 15:49] VITALS: BP 149/93; TEMP 98.3; O2SAT 99
== END 2023-07-07 15:02 | disposition home or self-care (01) ==
LOC: ER 13:51
DX: J02.0 Streptococcal pharyngitis (principal); Z11.52 Encounter for screening for COVID-19
CPT/HCPCS: 87081; 99284